=== PATIENT | female | born 1950 ===

== ENCOUNTER 2018-03-26 13:43 | Emergency (ER) | payer MEDICARE ==
--- NOTE | 2018-03-26 14:33 | ED PDOC ---
Upper Extremity Pain/Injury Time Seen by Provider: 03/26/18 13:54 Chief Complaint (Nursing): Finger,Hand,&Wrist Chief Complaint (Provider): thunb pain History Per: Patient Additional Complaint(s): 67-year-old right-hand dominant female presents with pain, redness and swelling to right thumb that started 2 days ago after patient was gardening. Patient was wearing gloves while she was gardening. She denies any acute trauma. She did not sustain any puncture wounds. Patient has noticed increased pain and swelling to ED visit today. She is having difficulty bending DIP of right thumb. No fever or chills. PMD: Dr. Beaver Past Medical History Reviewed: Historical Data, Nursing Documentation, Vital Signs Vital Signs: Last Vital Signs Temp 97.7 F 03/26/18 13:48 Pulse 84 03/26/18 13:48 Resp 16 03/26/18 13:48 BP 105/62 03/26/18 13:48 Pulse Ox 98 03/26/18 13:48 - Medical History PMH: Anxiety - Surgical History Other surgeries: cyst removal from left breast, vein removal from right leg - Family History Family History: States: No Known Family Hx - Living Arrangements Living Arrangements: With Family - Social History Current smoker - smoking cessation education provided: No Alcohol: None Drugs: Denies - Home Medications Home Medications: Ambulatory Orders Medication Instructions Recorded Tramadol Hydrochloride [Tramadol 50 mg PO Q6H PRN #15 tab 06/10/15 HCl] Clindamycin [Cleocin] 300 mg PO TID #21 cap 03/26/18 Ibuprofen [Motrin] 600 mg PO Q6 PRN #15 tab 03/26/18 - Allergies Allergies/Adverse Reactions: Allergies Allergy/AdvReac Type Severity Reaction Status Date / Time No Known Allergies Allergy Verified 03/26/18 13:48 Review of Systems ROS Statement: Except As Marked, All Systems Reviewed And Found Negative Constitutional: Negative for: Fever, Chills Musculoskeletal: Positive for: Other (right thumb pain and swelling) Physical Exam - Reviewed Nursing Documentation Reviewed: Yes Vital Signs Reviewed: Yes - Physical Exam Appears: Positive for: Well, Non-toxic, No Acute Distress Skin: Positive for: Normal Color. Negative for: Rash Eye Exam: Positive for: Normal appearance Neck: Positive for: Normal Extremity: Positive for: Other (Erythema, warmth and tenderness noted to diffusely to right thumb, no erythematous streaking, decreased range of motion at DIP, no obvious bony deformities, no open wounds, no abscess or paronychia noted, fingernail intact with no discoloration) Neurologic/Psych: Positive for: Alert, Oriented - ECG O2 Sat by Pulse Oximetry: 98 Pulse Ox Interpretation: Normal - Other Rad Right hand x-ray X-Ray: Interpreted by Me, Viewed By Me X-Ray Interpretation: no fx, no dis Medical Decision Making Medical Decision Makin67 y/o female with right thumb pain Plam: PO motrin X-ray right thumb X-ray demonstrates no acute fx or dislocation. Patient given prescriptions for Motrin and clindamycin. She has an appointment tomorrow with primary care doctor , Dr. Beaver. Attempts made to contact primary care doctor however no call back received. Patient advised to keep appt with PMD or return to ED at any time if acutely worse. Procedures - Splinting Location: right thumb Pre-Made Type: thumb spica velcro splint Pre-Proc Neuro Vasc Exam: normal Post-Proc Neuro Vasc Exam: normal Disposition - Clinical Impression Clinical Impression: Cellulitis of thumb - Patient ED Disposition Is Patient to be Admitted: No Counseled Patient/Family Regarding: Studies Performed, Diagnosis, Need For Followup, Rx Given - Disposition Referrals: Fabiano Beaver MD [Staff Provider] - Disposition: Routine/Home Disposition Time: 15:21 Condition: STABLE Additional Instructions: Ice, rest and elevate affected area. Take rx meds as directed. Follow up tomorrow with Dr. Beaver as scheduled. Prescriptions: Clindamycin [Cleocin] 300 mg PO TID #21 cap Ibuprofen [Motrin] 600 mg PO Q6 PRN #15 tab PRN Reason: Pain, Moderate (4-7) Instructions: Cellulitis (Skin Infection), Adult (DC) Forms: [employer] ([employer])
--- NOTE | 2018-03-26 16:03 | RAD ---
PROCEDURE: Right Hand Radiographs. HISTORY: attn thumb COMPARISON: None. FINDINGS: BONES: Normal. No fracture. JOINTS: Moderate osteoarthritic changes. Proximal and distal interphalangeal joint distribution. SOFT TISSUES: Normal. OTHER FINDINGS: None. IMPRESSION: No acute findings related to/accounting for the clinical presentation. Additional benign and/or incidental findings described above.
[2018-03-26 16:31] VITALS: BP 128/71; PULSE 72; RESP 18; TEMP 98.2; O2SAT 99
== END 2018-03-26 16:22 | disposition home or self-care (01) ==
LOC: H.ER 13:43
DX: L03.011 Cellulitis of right finger (principal); F41.9 Anxiety disorder, unspecified